=== PATIENT | female | born 1955 | race Caucasian/White ===

== ENCOUNTER → 2017-01-20 | Day surgery (SDC) | payer OTHER ==
[2017-01-13 09:19] VITALS: Ht 162.6 cm; Wt 87.7 kg
[~2017-01-20] VITALS: Ht 162.6 cm; Wt 87.7 kg
[~2017-01-20] MED LIST: CONJ0.453 PO; FLUT230A INH; GABA-113 PO; IOPAMIDOL INJ 61% 15 ML VIAL ONE; LIDOCAINE HCL 1% MPF 5 ML VIAL ONE; NRN/300 PO; SIMV20TA2 PO; SODIUM CHLORIDE 0.9% INJ 10 ML VIAL ONE; ZOLP10TA PO
--- NOTE | 2017-01-20 13:57 | History & Physical Bridge - [place] ---
H&P Re-Evaluation Bridge Note: I have examined the patient, reviewed the History & Physical and in the interval since the performance of the History & Physical I have noted the following changes of clinical significance: No changes noted
[2017-01-20 14:21] VITALS: BP 130/72; PULSE 60; TEMP 36.5; O2SAT 97
--- NOTE | 2017-01-20 14:28 | Discharge Instructions ---
Discharge Instructions Visit Reason for Visit: Lumbar Radiculopathy Discharge Discharge Diagnosis / Problem: left leg pain Discharge Goals Goal(s): Decrease discomfort, Improve function Medications Stopped Medications Name(s): ibuprofen stopped last dose last week. Activity Recommendations Activity Limitations: resume your previous activity Anesthesia . Post Anesthesia Instructions: If you have had General Anesthesia or IV Sedation: * Do not drive today. * Resume driving when surgeon permits. * Do not make important decisions or sign legal documents today. * Call surgeon for: 1. Temperature elevations greater than 101 degrees F. 2. Uncontrollable pain. 3. Excessive bleeding. 4. Persistent nausea and vomiting. 5. Medication intolerance (nausea, vomiting or rash). * For nausea and vomiting use only clear liquids such as: tea, soda, bouillon until nausea subsides, then gradually increase diet as tolerated. * If you have any concerns or questions, call your surgeon's office. If physician is unavailable and it is an emergency, call 911 or go to the nearest emergency room. . Diet Recommendations Recommended Home Diet: no limitations Procedures Procedures Performed: Lumbar Epidural Steroid Injection Pending Studies Studies pending at discharge: no Medical Emergencies . Who to Call and When: Medical Emergencies: If at any time you feel your situation is an emergency, please call 911 immediately. . Non-Emergent Contact Non-Emergency issues call your: Specialist . . "Provider Documentation" section prepared by Jay Morgan.
--- NOTE | 2017-01-20 15:24 | OPERATIVE REPORT ---
DATE OF OPERATION: 01/20/2017 PREOPERATIVE DIAGNOSIS: Lumbar foraminal stenosis with left lower extremity L5 radiculopathy. POSTOPERATIVE DIAGNOSIS: Same. PROCEDURE: Left paramedian L5-S1 intralaminar epidural steroid injection under fluoroscopic guidance. INDICATIONS: The patient is a 61-year-old white female who has persistent left lower extremity L5 radiculopathy pain despite conservative treatments, therapies and gabapentin. She presents today for an epidural steroid injection to provide her with relief of the radicular pain. PHYSICAL EXAMINATION: GENERAL: Pleasant female seated comfortably, in no apparent distress. MUSCULOSKELETAL: Lower extremities were examined. She is without any focal weakness. Has negative seated straight leg raises, intact sensation distally at the L4, L5, S1 dermatomes. Maneuvers, negative seated straight leg raises. CONSENT: Verbal and written consent was obtained from patient. Risks and benefits were reviewed. Risks include but are not limited to epidural abscess, epidural hematoma. The patient wishes to proceed. DESCRIPTION OF PROCEDURE: The patient was taken back to the special procedures room of the [facility]. She was maintained in prone position. Backside was cleansed with Betadine x3 and a dry sterile dressing was applied. Fluoroscope was used to identify the L5-S1 intralaminar space. Overlying skin on the left side was anesthetized with 4 mL of lidocaine 1% with a 25 gauge 1.5-inch needle. A 22 gauge 4.25-inch Tuohy needle was then directed down towards the intralaminar space. It was advanced under lateral fluoroscopic guidance and loss of resistance was noted at a depth of 10.5 cm. Isovue-300 contrast 1 mL was injected in which demonstrated epidural uptake pattern, this was confirmed with both AP and lateral views. She then underwent injection after negative aspiration of 40 mg of Depo-Medrol, 4 mL of preservative free sodium chloride. Injection was well tolerated. DISPOSITION: 1. The patient is taken out into the discharge recovery area where she will be discharged home once discharge criteria have been met. 2. Follow up in the [facility] office in 2-4 weeks. I attest to the content of the Intraoperative Record and any orders documented therein. Any exceptio ns are noted below.
== END | disposition home or self-care (01) ==
LOC: X.SURG 13:00
PROVIDERS: ATTEND Physical Medicine & Rehabilitation
DX: M99.73 Connective tissue and disc stenosis of intervertebral foramina of lumbar region (principal); M54.16 Radiculopathy, lumbar region

== ENCOUNTER → 2017-04-06 | Outpatient (CLI) | payer OTHER ==
[~2017-04-06] MED LIST changes: -IOPAMIDOL INJ 61% 15 ML VIAL ONE; -LIDOCAINE HCL 1% MPF 5 ML VIAL ONE; -SODIUM CHLORIDE 0.9% INJ 10 ML VIAL ONE
== END ==
LOC: C.RDSM 15:05
PROVIDERS: ATTEND Family Medicine
DX: M25.552 Pain in left hip (principal); M25.551 Pain in right hip; M99.83 Other biomechanical lesions of lumbar region; M70.61 Trochanteric bursitis, right hip

== ENCOUNTER → 2017-04-12 | Outpatient (CLI) | payer OTHER ==
--- NOTE | 2017-04-12 13:29 | DIAGNOSTIC IMAGING REPORT ---
MRI OF THE LUMBAR SPINE WITHOUT IV CONTRAST CLINICAL HISTORY: Low back pain. Right hip pain. COMPARISON STUDY: No priors. TECHNIQUE: MRI of the lumbar spine is performed utilizing various T1 and T2-weighted sequences in the axial and sagittal planes. IV contrast was not administered for this examination. FINDINGS: Lumbar spine: Vertebral body height and alignment are maintained throughout the lumbar spine. Marrow signal intensity is heterogeneous. The transverse and spinous processes appear intact. There is no evidence of spondylolysis. There is mild straightening of the lumbar lordosis. A Schmorl's node is seen in superior endplate of L4. Small anterior osteophytes are observed throughout. A tiny hemangioma is suggested in the body of L3. Chronic degenerative endplate change is seen at a levels from L2 to L3 through L4-L5. Intervertebral discs: There is degenerative disc desiccation seen throughout the lumbar spine. Mild loss of height is noted at L2-L3. Spinal cord: The partially imaged spinal cord is normal in morphology and signal intensity. The conus medullaris terminates at the level of L1. The nerve roots of the cauda equina are normal in morphology. L1-L2: Unremarkable. L2-L3: There is a small posterior disc bulge with annular fissure. There is no central canal or neural foraminal stenosis. L3-L4: There is minimal posterior disc bulge with annular fissure. There is no significant acquired compromise of the central canal or neural foraminal stenosis. There is minimal bilateral subarticular stenosis. L4-L5: There is minimal posterior disc bulge. The central canal and neural foramina appear clear. L5-S1: Unremarkable. Sacrum: The visualized sacrum is normal in morphology and signal intensity. Soft tissues: There is mild induration of the paraspinous soft tissues from L4 to S1, possibly related to instrumentation/facet injections. The paraspinous soft tissues are otherwise normal in appearance. The visualized retroperitoneal structures are grossly unremarkable but incompletely assessed. IMPRESSION: 1. There is no disc herniation or significant acquired compromise of the central canal. 2. Mild degenerative disc disease as above. 3. Mild spondylosis as above. See discussion for detailed level by level analysis. 4. No destructive bony process is identified. 5. There is mild induration/edema involving the paraspinous/intraspinous soft tissues from L4 S1. This is likely iatrogenic and related to facet injections. Clinical correlation will be required. Dictated: 04/12/2017 11:17 AM Transcribed: 04/12/2017 1:28 PM [email or web address] Electronically signed by: Zaire Frank M.D. 04/12/2017 2:43 PM Dictated Date/Time: 04/12/2017 11:17 AM
== END | disposition home or self-care (01) ==
LOC: C.MRI 08:36
PROVIDERS: ATTEND Family Medicine
DX: M25.552 Pain in left hip (principal); M25.551 Pain in right hip; M99.83 Other biomechanical lesions of lumbar region; M70.61 Trochanteric bursitis, right hip

== ENCOUNTER → 2017-05-16 | Outpatient (CLI) | payer OTHER | END | disposition home or self-care (01) | LOC: C.RDSM 15:00 | PROVIDERS: ATTEND Family Medicine | DX: M75.101 Unspecified rotator cuff tear or rupture of right shoulder, not specified as traumatic (principal); G44.209 Tension-type headache, unspecified, not intractable; M95.8 Other specified acquired deformities of musculoskeletal system ==

== ENCOUNTER → 2017-06-21 | Outpatient (CLI) | payer OTHER | END | disposition home or self-care (01) | LOC: C.PAPS 06-18 14:49 | PROVIDERS: ATTEND Internal Medicine | DX: Z01.419 Encounter for gynecological examination (general) (routine) without abnormal findings (principal) ==

== ENCOUNTER → 2017-11-15 | Outpatient (CLI) | payer OTHER ==
--- NOTE | 2017-11-15 15:28 | MAMMOGRAPHY REPORT ---
BILATERAL DIGITAL SCREENING MAMMOGRAM TOMOSYNTHESIS WITH CAD: 11/15/2017 CLINICAL HISTORY: Routine screening. Patient has no complaints. TECHNIQUE: Breast tomosynthesis in addition to standard 2D mammography was performed. Current study was also evaluated with a Computer Aided Detection (CAD) system. COMPARISON: Comparison is made to exams dated: 11/12/2016 mammogram, 10/24/2015 mammogram, 10/21/2014 mammogram, 10/17/2013 mammogram, 10/16/2012 mammogram, and 10/12/2011 mammogram - [facility]. BREAST COMPOSITION: The tissue of both breasts is almost entirely fatty. FINDINGS: There is a stable intramammary lymph node in the upper outer posterior left breast, that is unchanged mammary graft leading dating back to at least 10/06/2009, therefore likely benign. No new suspicious mass, architectural distortion or cluster of microcalcifications is seen. IMPRESSION: ACR BI-RADS CATEGORY 1: NEGATIVE There is no mammographic evidence of malignancy. A 1 year screening mammogram is recommended. The pa tient will receive written notification of the results. Approximately 10% of breast cancers are not detected with mammography. A negative mammographic report should not delay biopsy if a clinically suggestive mass is present. Sue Nguyen M.D. ay/:11/15/2017 10:30:59 Inside Sales Professional: Naina TINSLEY)(M), [facility] letter sent: Normal 1/2 BI-RADS Code: ACR BI-RADS Category 1: Negative
== END | disposition home or self-care (01) ==
LOC: C.MAMM 09:40
PROVIDERS: ATTEND Obstetrics & Gynecology
DX: Z12.31 Encounter for screening mammogram for malignant neoplasm of breast (principal)

== ENCOUNTER → 2018-06-27 | Outpatient (CLI) | payer OTHER | END | disposition home or self-care (01) | LOC: C.PAPS 15:15 | PROVIDERS: ATTEND Obstetrics & Gynecology | DX: Z12.4 Encounter for screening for malignant neoplasm of cervix (principal) ==